=== PATIENT | female | born 1975 | race Caucasian/White ===

== ENCOUNTER → 2021-01-30 | Outpatient (CLI) | payer OTHER ==
[~2021-01-30] MED LIST: AMLODIPINE BESY10 MG PO; BAYER CHEWABLE81 MG PO; IBU800 MG PO; KEFLEX500 MG PO; LIDOCAINE HCL100 ML MM; LISINOPRIL2.5 MG PO; NORCO 5-325 TA1 EACH PO; NORCO 7.5-3251 EACH PO; NORFLEX 100 MG100 MG PO; PREDNISONE10 M1 PO
[2021-01-30 11:19] LABS: HEMOGLOBIN 13.5 gm/dl (12.3-15.3); RED BLOOD COUNT 4.56 M/UL (4.00-5.10); WHITE BLOOD COUNT 8.4 K/UL (4.5-11.0)
[2021-01-30 11:35] LABS: BUN/CREATININE RATIO 13 (0-10)
[2021-01-31 10:14] LABS: THYROXINE (T4) 8.3 ug/dL (4.5-12.0); VITAMIN D, 25-HYDROXY 25.9 ng/mL (30.0-100.0)
== END ==
LOC: LAB 10:34
PROVIDERS: Nurse Practitioner
DX: K21.9 Gastro-esophageal reflux disease without esophagitis (principal); E78.5 Hyperlipidemia, unspecified; I10 Essential (primary) hypertension; S50.02XA Contusion of left elbow, initial encounter; X58.XXXA Exposure to other specified factors, initial encounter
CPT/HCPCS: 36415; 73080; 80053; 80061; 84436; 84443; 84480; 85025

== ENCOUNTER 2021-04-27 17:51 | Emergency (ER) | payer OTHER ==
[~2021-04-27 17:51] MED LIST changes: -IBU800 MG PO; -NORFLEX 100 MG100 MG PO
[2021-04-27 19:20] LABS: HEMOGLOBIN 14.3 gm/dl (12.3-15.3); RED BLOOD COUNT 4.83 M/UL (4.00-5.10); WHITE BLOOD COUNT 20.9 K/UL (4.5-11.0)
[2021-04-27 19:39] LABS: BUN/CREATININE RATIO 17 (0-10)
[2021-04-27] MEDS ORDERED: IBU800 MG PO (23:00)
[2021-04-27] MEDS ORDERED: NORFLEX 100 MG100 MG PO (23:00)
== END 2021-04-27 23:08 | disposition home or self-care (01) ==
LOC: ER1 17:51
PROVIDERS: Nurse Practitioner
DX: S09.90XA Unspecified injury of head, initial encounter (principal); S30.1XXA Contusion of abdominal wall, initial encounter; S80.01XA Contusion of right knee, initial encounter; F15.10 Other stimulant abuse, uncomplicated; F12.10 Cannabis abuse, uncomplicated; E78.5 Hyperlipidemia, unspecified; I10 Essential (primary) hypertension; Z88.0 Allergy status to penicillin; Z88.5 Allergy status to narcotic agent; Z79.899 Other long term (current) drug therapy; W50.1XXA Accidental kick by another person, initial encounter; Y92.009 Unspecified place in unspecified non-institutional (private) residence as the place of occurrence of the external cause
CPT/HCPCS: 70450; 71045; 80053; 80307; 81001; 82550; 82553; 83605; 83690; 83874; 84484; 84703; 85025; 85610; 87040; 93005; 96372; 96374; 96375; 99284; G0480; J2360; J2405; Q9967